=== PATIENT | female | born 1995 | race Caucasian/White ===

== ENCOUNTER 2022-09-01 20:53 | Emergency (ER) | payer OTHER, SELFPAY ==
--- NOTE | 2022-09-01 20:56 | PC.NURSE ---
pt came up to intake desk and ripped off wrist band. pt states im leaving and walked out.
[2022-09-01 21:00] VITALS: BP 137/78; PULSE 83; RESP 14; TEMP 36.3; O2SAT 100
--- NOTE | 2022-09-01 22:48 | ED.DENTAL ---
HPI - Dental/Oral General Chief complaint: Dental/Oral <BRANDEN Johnson Last Filed: 09/01/22 23:06> Stated complaint: dental <BRANDEN Johnson Last Filed: 09/01/22 23:06> Time Seen by Provider: 09/01/22 21:08 <BRANDEN Johnson Last Filed: 09/01/22 23:06> Source: patient <BRANDEN Johnson Last Filed: 09/01/22 23:06> Mode of arrival: ambulatory <BRANDEN Johnson Filed: 09/01/22 23:06> Limitations: no limitations <BRANDEN Johnson Last Filed: 09/01/22 23:06> History of Present Illness HPI Narrative: Patient is a 27-year-old female who presented to ED with report of right upper and lower dental pain. Patient reports she has known dental caries and dental fractures on the right side. She developed pain throughout her right upper teeth, extending to her right lower teeth earlier this morning. She has been taking Tylenol for the pain without much relief. She feels as though her teeth are infected. Denies any fever, difficulty breathing or swallowing, vomiting. Patient does not have an appointment yet with a dentist. Patient is a recovering methamphetamine user. She is currently 7 months clean living in a sober living house. <BRANDEN Johnson Last Filed: 09/01/22 23:06> Related Data Allergies/adverse reactions: Allergies Allergy/AdvReac Type Severity Reaction Status Date / Time NSAIDS (Non-Steroidal Allergy Hives Verified 09/01/22 20:54 Anti-Inflamma <BRANDEN Johnson Last Filed: 09/01/22 23:06> Review of Systems Review of Systems: CONSTITUTIONAL: Denies fever, chills, or sweats. ENT: See HPI. CARDIOVASCULAR: Denies chest pain. RESPIRATORY: Denies dyspnea. GASTROINTESTINAL: Denies abdominal pain, nausea, vomiting. GENITOURINARY: Denies dysuria or hematuria. <BRANDEN Johnson Last Filed: 09/01/22 23:06> All systems reviewed & are unremarkable except as noted in HPI and below <Charlene Becerril PA-C - Last Filed: 09/01/22 23:06> Exam Narrative: GENERAL: Well appearing, well-nourished, non-toxic, in no acute distress. HEAD: Normocephalic, atraumatic. ENT: Diffuse dental decay and scattered dental caries. Tenderness to palpation along right-sided upper and lower gum lines, particularly lower inner gumline, upper outer gumline. No trismus. No stridor. No focal abscess. NECK: Supple. No significant swelling or adenopathy, no masses. RESPIRATORY: Airway patent, respirations nonlabored. Clear to auscultation bilaterally, no rales, rhonchi, wheezing. CARDIOVASCULAR: Regular rate and rhythm without murmurs, rubs, or gallops. Radial pulses 2+ and equal bilaterally. MUSCULOSKELETAL: Moves all extremities. Strength/ROM intact without gross deformities. SKIN: Warm, dry, normal color. No rashes. NEURO: A&O X3. Speech clear. Cranial nerves II-XII grossly intact. Steady gait. No ataxic movements. PSYCHIATRIC: Appropriate mood and affect. Normal interaction. <Charlene Becerril PA-C - Last Filed: 09/01/22 23:06> Course KAYAK MAKER/PA Physician Supervision This is a was performed by both a physician and an APC. I performed all aspects of the MDM as documented w/ the following additions: 27-year-old former meth user presenting with dental pain. No abscess. Discharged w/ dental follow up. All questions answered. Patient in agreement w/ disposition. <Aditya Reynolds MD - Last Filed: 09/08/22 18:22> Vital Signs Vital signs: Vital Signs Temperature 97.3 F L 09/01/22 21:00 Pulse Rate 83 09/01/22 21:00 Respiratory Rate 14 09/01/22 21:00 Blood Pressure 137/78 09/01/22 21:00 Pulse Oximetry 100 09/01/22 21:00 Oxygen Delivery Room Air 09/01/22 21:00 Temperature 97.3 F L 09/01/22 21:00 Pulse Rate 83 09/01/22 21:00 Respiratory Rate 14 09/01/22 21:00 Blood Pressure 137/78 09/01/22 21:00 Pulse Oximetry 100 09/01/22 21:00
[2022-09-01] MEDS: AMOXICILLIN/CLAVULANATE K 875-125 MG TAB 1 TABLET PO (22:54)
== END 2022-09-01 22:57 | disposition home or self-care (01) ==
PROVIDERS: Emergency Provider Physician Assistant
DX: K02.9 Dental caries, unspecified (principal); K03.81 Cracked tooth
CPT/HCPCS: 99283; A9270

== ENCOUNTER 2023-05-20 14:35 | Emergency (ER) | payer OTHER, SELFPAY ==
[2023-05-20 14:43] VITALS: BP 110/58; PULSE 76; RESP 20; TEMP 36.8; O2SAT 100
--- NOTE | 2023-05-20 14:58 | ED.DENTAL ---
HPI - Dental/Oral General Chief complaint: Dental/Oral Stated complaint: Left jaw area swollen/pain Time Seen by Provider: 05/20/23 14:49 Source: patient and RN notes reviewed Mode of arrival: ambulatory Limitations: no limitations History of Present Illness HPI Narrative: Patient presents today complaining of left upper and lower dental pain since 2:00 a.m. this morning that has been worsening since onset, mild swelling in the jaw. Denies fever, shortness of breath or difficulty swallowing. Currently rates her pain 6/10 and has been using Tylenol, Orajel, and mouthwash without much relief. She does not currently have a dentist. Related Data Home Medications Medication Instructions Recorded Confirmed valacyclovir 1 gram tablet 1,000 mg PO DAILY 05/20/23 05/20/23 Allergies Allergy/AdvReac Type Severity Reaction Status Date / Time NSAIDS (Non-Steroidal Allergy Intermediate Hives Verified 05/20/23 14:51 Anti-Inflamma Review of Systems Review of Systems: CONSTITUTIONAL: Denies body aches, fever, chills, or sweats. EYES: Denies visual changes, redness, or discharge. ENT: Denies rhinorrhea, congestion, sore throat, or otalgia.+ dental pain and facial swelling CARDIOVASCULAR: Denies chest pain, palpitations, or edema. RESPIRATORY: Denies cough or dyspnea. GASTROINTESTINAL: Denies abdominal pain, nausea, vomiting, or diarrhea. GENITOURINARY: Denies dysuria or hematuria. SKIN: Denies rash, itching, or wounds. MUSCULOSKELETAL: Denies back pain, joint pain, or myalgia. NEUROLOGIC: Denies headache, numbness, tingling, or weakness. PSYCH: Denies depression or anxiety. PMFSH Comments At time of signature, I have reviewed and agree with nursing past medical, surgical, social and family history unless otherwise noted. Please see nursing chart for further information. There is no relevant family history pertinent to the presenting complaint Exam Narrative: GENERAL: Well-appearing, well-nourished, and in no acute distress. HEAD: Normocephalic, atraumatic. EYES: EOMI. No redness or drainage. Conjunctivae normal. ENT: Mucous membranes pink and moist. Throat normal. Uvula midline. Pain to tooth 18 and 12 with some widespread decay. Mild swelling of the left lower jaw. No trismus NECK: Normal AROM. CHEST: No respiratory distress. EXTREMITIES: Normal range of motion. No edema. SKIN: Warm, dry, no rash. Capillary refill normal. Normal skin turgor. NEURO: No focal deficits. Alert and oriented x3. Gait steady. PSYCH: Normal affect. No signs of depression or anxiety. Course Course Level of Care: Express Care Visit Vital Signs Vital signs: Vital Signs Temperature 98.2 F 05/20/23 14:43 Pulse Rate 76 05/20/23 14:43 Respiratory Rate 20 05/20/23 14:43 Blood Pressure 110/58 L 05/20/23 14:43 Pulse Oximetry 100 05/20/23 14:43 Oxygen Delivery Room Air 05/20/23 14:43 Temperature 98.2 F 05/20/23 14:43 Pulse Rate 76 05/20/23 14:43 Respiratory Rate 20 05/20/23 14:43 Blood Pressure 110/58 L 05/20/23 14:43 Pulse Oximetry 100 05/20/23 14:43 Oxygen Delivery Room Air 05/20/23 14:43 Reviewed MDM - Dental/Oral MDM Narrative Medical decision making narrative: Patient is started on a course of Augmentin and urged to follow-up with a dentist. Anticipatory guidance given. Differential Diagnosis Differential diagnosis: Likely gingival abscess, dental caries, toothache, dental abscess and fracture of tooth Critical Care Time Critical Care Time Critical Care Time: No Discharge Plan Discharge Clinical Impression: Abscess, dental Patient Disposition: Home, Self-Care Condition: Stable Instructions: Antibiotic Form, Dental Abscess (ED) Additional Instructions: Please take the Augmentin as prescribed until gone. Continue Tylenol for pain if needed. Follow-up with a dentist as soon as possible. As discussed, if symptoms worsen, please go to the ER immediately fo
== END 2023-05-20 15:04 | disposition home or self-care (01) ==
PROVIDERS: Emergency Provider Nurse Practitioner
DX: K04.7 Periapical abscess without sinus (principal)
CPT/HCPCS: 99213; G0463

== ENCOUNTER 2023-07-26 13:07 | Emergency (ER) | payer OTHER, SELFPAY ==
[2023-07-26 13:12] VITALS: BP 113/57; PULSE 86; RESP 18; TEMP 37.2; O2SAT 98
--- NOTE | 2023-07-26 13:46 | ED.URI ---
HPI - URI/Sore Throat General Chief Complaint: Upper Respiratory Infection Stated Complaint: Headache/cough/congestion Time Seen by Provider: 07/26/23 14:20 Source: patient, RN notes reviewed and old records reviewed Mode of arrival: ambulatory Limitations: no limitations History of Present Illness HPI Narrative: 28-year-old female presents to the [facility] with 3 day history of cough, congestion and headache. Has taken Tylenol. No other treatment prior to arrival. Related Data Home Medications Medication Instructions Recorded Confirmed valacyclovir 1 gram tablet 1,000 mg PO DAILY 05/20/23 07/26/23 norgestimate 0.25 mg-ethinyl 1 tablet PO DAILY 07/26/23 07/26/23 estradiol 35 mcg tablet (Vesta) Allergies Allergy/AdvReac Type Severity Reaction Status Date / Time NSAIDS (Non-Steroidal Allergy Intermediate Hives Verified 07/26/23 13:53 Anti-Inflamma Review of Systems Review of Systems: All systems reviewed & are unremarkable except as noted in HPI and below Constitutional: Constitutional: Reports as per HPI and Reports headache(s) Eyes: Eyes: Reports no additional eye complaints ENT: Reports nasal congestion Cardiovascular: Cardiovascular: Reports no additional cardiovascular complaints, Denies chest pain and Denies dyspnea Respiratory: Respiratory: Reports as per HPI, Denies chest congestion, Reports cough and Denies dyspnea Gastrointestinal: Gastrointestinal: Reports no additional gastrointestinal complaints, Denies abdominal pain, Denies nausea and Denies vomiting Musculoskeletal: Musculoskeletal: Reports no additional musculoskeletal complaints Integumentary/Breasts: Skin/Breast: Reports system reviewed and no additional complaints, except as docu Neurologic: Reports system reviewed and no additional complaints, except as documented Psychiatric: Psychiatric: Reports no additional psychiatric complaints Allergic/Immunologic: Allergic/Immunologic: Reports no additional allergic/immunologic complaints PMFSH Comments At the time of my signature, I reviewed and agree with the nursing past medical, surgical, social, and family history. There is no relevant family history pertinent to the patient complaint. Exam Const: General: cooperative, healthy appearing, comfortable, no acute distress, well developed, alert and well nourished Nutritional Appearance: well nourished Orientation/consciousness: patient oriented x3 Limitations: no limitations HENMT: Head: normal to inspection Ears: hearing grossly normal bilaterally, external ears normal, TM's normal bilaterally, EAC's normal, mastoids normal and no periauricular adenopathy Face/Nose/Sinus: Normal external nose present, Normal nares present, Normal nasal mucous membranes and turbinates present, normal facial exam and face symmetric Face and sinus: normal facial exam, sinuses nontender and face symmetric Throat: posterior oropharynx normal, uvula midline, postnasal drainage and no uvular edema Eyes: General: appearance normal, both eyes and all related structures Alignment and Position: alignment normal Periorbital: periorbital findings normal Pupils: Equal, round and reactive pupils present EOM: EOMs intact bilaterally Neck: Neck: normal visual inspection, full ROM, no lymphadenopathy and no meningeal signs Chest: Chest palpation & inspection: normal inspection of the chest Resp: Effort & Inspection: normal respiratory effort and able to speak in complete sentences Auscultation: clear to auscultation bilaterally, no crackles, no rales, no rhonchi and no wheezes Cardio: Rate: regular rate Rhythm: regular rhythm Skin: General skin exam: normal color and no rashes or lesions noted Lesions: no lesions Rashes: no rashes Trauma: no lacerations or abrasions Wounds: no wounds Neuro: General: patient oriented x3, gait normal, tone normal, moves all extremities and no meningeal signs Cranial nerves: Yes Equal, round and reactive pupils present Cogni
== END 2023-07-26 14:30 | disposition home or self-care (01) ==
PROVIDERS: Emergency Provider Nurse Practitioner
DX: J06.9 Acute upper respiratory infection, unspecified (principal); R09.82 Postnasal drip; Z20.822 Contact with and (suspected) exposure to COVID-19
CPT/HCPCS: 87081; 87426; 87804; 87880; 99213; G0463

== ENCOUNTER 2024-12-04 08:35 | Emergency (ER) | payer OTHER, SELFPAY ==
[2024-12-04 08:40] VITALS: BP 119/69; PULSE 72; RESP 20; TEMP 36.3; O2SAT 99
--- OUTSIDE RECORDS SUMMARY | 2024-12-04 08:46 | XMS_ITS | Clinical Summary ---
Author Organization [facility] Address [address] [place] [address] Care Team Providers Care Warehouse Distribution Manager Name Role Phone No, Physician Primary Care Provider [phone] Allergies Active Allergy Reactions Criticality Noted Date Comments Aspirin Hives Medium 04/09/2019 Ibuprofen Swelling Medium 05/09/2018 Hives Naproxen Swelling Medium 05/09/2018 Hives Medications diphenoxylate-atrop ine (LOMOTIL) 2.5-0.025 mg per tabletIndications:d iarrhea Take 1 tablet by mouth 4 (four) times a day as needed for diarrhea 10 tablet 9 Active lidocaine viscous (XYLOCAINE) 2 % solution Take 10 mL by mouth every 3 (three) hours 100 mL 2 Active ondansetron ODT (ZOFRAN-ODT) 4 mg disintegrating tablet Dissolve 1 tablet oral every 4 hours as needed for nausea or vomiting. 15 tablet 2 Active Active Problems No known active problems Medical History Medical History Date Comments No known health problems Anxiety Social History Tobacco Use Types Packs/Day Years Used Date Smoking Tobacco: Never Smokeless Tobacco: Never Tobacco Cessation:Counseling Given: Not Answered Alcohol Use Standard Drinks/Week Comments No 0 (1 standard drink = 0.6 oz pur e alcohol) Personal Safety Answer Date Recorded Getting School Help Needed Not on file 04/16 Comments No Sex and Gender Information Value Date Recorded Sex Assigned at Not on file Legal Sex Female 7:38 PM HUMAN RESOURCES SERVICES SPECIALIST Gender Identity Not on file Sexual Orientation Not on file Obstetrics History Last Filed Vital Signs Vital Sign Reading Time Taken Comments Blood Pressure 114/71 02/10/2022 6:21 AM HUMAN RESOURCES SERVICES SPECIALIST Pulse 75 02/10/2022 6:21 AM HUMAN RESOURCES SERVICES SPECIALIST Temperature 36.4 C (97.6 F) 02/10/2022 6:21 AM HUMAN RESOURCES SERVICES SPECIALIST Respiratory Rate 18 02/10/2022 6:21 AM HUMAN RESOURCES SERVICES SPECIALIST Oxygen Saturation 100% 02/10/2022 6:21 AM HUMAN RESOURCES SERVICES SPECIALIST Inhaled Oxygen Concentration - - Weight 70 kg (154 lb 5.2 oz) 02/10/2022 1:44 AM HUMAN RESOURCES SERVICES SPECIALIST Height 167.6 cm (5' 6) 08/07/2021 12:41 PM CDT Body Mass Index 24.91 08/07/2021 12:41 PM CDT Plan of Treatment Health Maintenance Due Date Last Done Comments Cervical Cancer Screening 1995 Depression Screening 1995 Hepatitis C Screening 1995 DTaP/Tdap/Td Vaccine (1 - Tdap) 06/29/2006 Varicella Vaccines (1 of 2 - 13+ 2-dose series) 06/29/2008 Hepatitis B Screening 06/29/2013 Regular Well Visit/Exam 18-64 06/29/2013 HPV Vaccines (1 - 3-dose SCD M series) 06/29/2022 Influenza Vaccine (#1) 2024 Pneumococcal vaccine <65 Aged Out No longer eligible based on patient's age to complete this topic Insurance [place], [place] [id number] [place] [address] [address] [place] [place] [id number] [place] [address] Care Teams Warehouse Distribution Manager Relationship Specialty Start Date End Date No, Physician PCP - General 09/22/16
--- OUTSIDE RECORDS SUMMARY | 2024-12-04 08:46 | XMS_ITS | Clinical Summary ---
Author Organization [facility] Address [address] [place] [address] Phone Care Team Providers Care Truck Manager Name Role Phone Provider, None Primary Care Provider Unavailabl e Allergies Active Allergy Reactions Criticality Noted Date Comments Nsaids Hives 09/09/2021 Medications valACYclovir (VALTREX) 1 GM Tablet Take 1 Tablet by mouth 2 times daily. 20 Tablet 11/04/2022 Active famotidine (PEPCID) 40 MG Tablet Take 1 Tablet by mouth every evening. 90 Tablet 12/21/2022 Active traMADol (ULTRAM) 50 MG TabletIndicatio ns:Infected dental caries Take 1 Tablet by mouth every 6 hours as needed for Moderate or more severe pain. 12 Tablet 01/18/2023 Active acetaminophen-c odeine (TYLENOL #3) 300-30 MG TabletIndicatio ns:Dentalgia,De ntal caries Take 1 Tablet by mouth every 4 hours as needed for Moderate or more severe pain. 10 Tablet 12/24/2023 Active cyclobenzaprine (FLEXERIL) 5 MG Tablet Take 1 Tablet by mouth 3 times daily as needed for Muscle spasms. 15 Tablet 03/05/2024 Active Social History Tobacco Use Types Packs/Day Years Used Date Smoking Tobacco: Never Smokeless Tobacco: Never Tobacco Cessation:Counseling Given: Not Answered Alcohol Use Standard Drinks/Week Comments Yes 0 (1 standard drink = 0.6 oz pur e alcohol) Comments No Sex and Gender Information Value Date Recorded Sex Assigned at Female 01/18/2023 6:09 PM BILLET ASSEMBLER Legal Sex Female 7:36 AM BILLET ASSEMBLER Gender Identity Female 01/18/2023 6:09 PM BILLET ASSEMBLER Sexual Orientation Not on file Last Filed Vital Signs Vital Sign Reading Time Taken Comments Blood Pressure 120/76 03/25/2024 7:52 AM BILLET ASSEMBLER Pulse 72 03/25/2024 7:52 AM BILLET ASSEMBLER Temperature 36.3 C (97.3 F) 03/25/2024 7:52 AM BILLET ASSEMBLER Respiratory Rate 16 03/25/2024 7:52 AM BILLET ASSEMBLER Oxygen Saturation 100% 03/25/2024 7:52 AM BILLET ASSEMBLER Inhaled Oxygen Concentration - - Weight 96.7 kg (213 lb 3 oz) 03/25/2024 7:52 AM BILLET ASSEMBLER Height 167.6 cm (5' 6) 03/25/2024 7:52 AM BILLET ASSEMBLER Body Mass Index 34.41 03/25/2024 7:52 AM BILLET ASSEMBLER Plan of Treatment Health Maintenance Due Date Last Done Comments TdaP Immunization 1995 Hepatitis B Immunization (1 of 3 - 19+ 3-dose series) 06/29/2014 Pap Smear 06/29/2016 Human Papillomavirus (HPV) Immunization (1 - 3-dose SCDM series) 06/29/2022 Influenza Immunization (#1) 2024 SARS-COV-2 Immunization ( season) 2024 Respiratory Syncytial Virus (RSV) Immunization (Adult) (1 - 1-dose 75+ series) 06/29/2070 Hepatitis C Virus (HCV) Screening Completed 023 Meningococcal Immunization (ACWY) Aged Out No longer eligible based on patient's age to complete this topic Pneumococcal Immunization Combined Aged Out No longer eligible based on patient's age to complete this topic Rotavirus Immunization Aged Out No lo nger eligible based on patient's age to complete this topic Procedures Procedure Name Priority Date/Time Associated Diagnosis Comments HEPATITIS C ANTIBODY STAT 11/04/2022 9:20 PM CDT from Last 3 Months or Most Recently Relevant to Health Maintenance Results * Hepatitis C Antibody (11/04/2022 9:20 PM CDT) hepatitis C antibody 0.12 <1 S/[facility] [place] [facility] [id number] 11/05/2022 3:05 PM CDT [facility] Comment: Signal/Cutoff ratio < 0.79 is Nondetected Signal/Cutoff ratio 0.80-0.99 is Grayzone Signal/Cutoff ratio > 0.99 is Detected Supplemental assays are recommended if signal/cutoff ratio is >/=1.00. Signal/cutoff ratio result >/= 5.00 is 97% predictive of positivity for recombinant immunoblot assay (RIBA) and will be reported to the [place] [facility] as required. Blood Venipuncture / Unknown 11/04/2022 9:20 PM CDT 11/04/2022 9:46 PM CDT us Crystal Nash Page PAC CHEMISTRY ORDERABLES Final R esult [facility] [address] [place] [address], [place] from Last 3 Months or Most Recently Relevant to Health Maintenance Insurance MEDICAID [place] Care Teams Truck Manager Relationship Specialty Start Date End Date Provider, None [place] PCP - General 06/12/23
--- NOTE | 2024-12-04 08:48 | ED_ITS ---
HPI - URI/Sore Throat General Chief Complaint: Upper Respiratory Infection Stated Complaint: sore throat Time Seen by Provider: 12/04/24 08:44 Source: patient, RN notes reviewed and old records reviewed Mode of arrival: ambulatory Limitations: no limitations History of Present Illness HPI Narrative: 29 year old female who presents to [facility] care with complaints of sore throat which started yesterday morning. Patient reports that throat is sore especially to swallow, states feels like razor blades in her throat. Patient reports no cough, no ear pain,states no sinus pressure or headache pain. Patient reports t hat she has not had any know fevers. Patient reports that she has been taking Tylenol for her discomfort. MD elicited complaint: sore throat Onset (ago): day(s) (since yesterday morning) Consistency: constant Pain scale (0-10): 6 Able to tolerate fluids by mouth: Yes Exacerbating factors: swallowing Treatments prior to arrival: acetaminophen Related Data Home Medications ?Medication ?Instructions ?Recorded ?Confirmed ?Last Taken ?Type valacyclovir 1 gram tablet 1,000 mg PO DAILY 05/20/23 07/26/23 Unknown History Allergies Allergy/AdvReac Type Severity Reaction Status Date / Time NSAIDS (Non-Steroidal Allergy Intermediate Hives Verified 12/04/24 08:44 Anti-Inflamma Review of Systems Review of Systems: CONSTITUTIONAL: Reports malaise,no chills, sweats, or fever. EYES: Denies visual changes, redness, or discharge. ENT: Reports no rhinorrhea, congestion,no sinus pain,no otalgia and positive for sore throat. CARDIOVASCULAR: Denies chest pain, palpitations, or edema. RESPIRATORY: Reports no cough.? Denies dyspnea. GASTROINTESTINAL: Denies abdominal pain, nausea, vomiting, diarrhea SKIN: Denies rash or itching. MUSCULOSKELETAL: Denies myalgia. NEUROLOGIC: Denies headache. 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 There is no relevant family history pertinent to the presenting complaint Exam Narrative: GENERAL: Well-appearing, well-nourished, and in no acute distress. HEAD: Normocephalic EYES: PERRLA, conjunctivae clear ENT: Nares clear, turbinates edematous and erythematous, clear discharge. Mucous membranes moist. TM pearly archibald with dull light reflex bilaterally; no tragal tenderness. Oropharynx erythematous without lesions. Tonsils red enlarged and without exudate, no drooling, no hoarseness, no trismus, uvula midline minimalpost nasal drainage NECK: Supple. lymphadenopathy CHEST: Clear to auscultation, breath sounds equal. No wheezing, rhonchi, rales, or stridor. No respiratory distress, speaks in full sentences.SAO2 99% on room air HEART: Regular rate and rhythm. No murmur heard. SKIN: Warm, dry, no rash. NEURO: Alert and oriented x3. PSYCH: Normal mood and affect Course Course Emergency Course: Patient is aware of diagnosis, understands and agrees to treatment plan.? Anticipatory guidance given.? Patient agrees to follow-up as directed and is aware of reasons to seek care at the emergency department. Portions of this record may have been created with voice recognition software Level of Care: Express Care Visit Vital Signs Vital signs: Vital Signs Temperature 36.3 C L 12/04/24 08:40 Pulse Rate 72 12/04/24 08:40 Respiratory Rate 20 12/04/24 08:40 Blood Pressure 119/69 12/04/24 08:40 Pulse Oximetry 99 12/04/24 08:40 Oxygen Delivery Room Air 12/04/24 08:40 Temperature 36.3 C L 12/04/24 08:40 Pulse Rate 72 12/04/24 08:40 Respiratory Rate 20 12/04/24 08:40 Blood Pressure 119/69 12/04/24 08:40 Pulse Oximetry 99 12/04/24 08:40 Oxygen Delivery Room Air 12/04/24 08:40 Reviewed MDM - URI/Sore Throat MDM Narrative Medical decision making narrative: Differential diagnosis considered: Braga virus, strep pharyngitis, allergic rhinitis, upper respiratory tract infection, sinusitis, rhinosinusitis, nasopharyngitis. viral pharyngitis, otitis media, otitis externa, pneumonia, bronchitis, viral cough syndrome, viral syndrome, and influenza.? Exam findings show no acute concerns or changes; patient is non-toxic appearing and is in no distress.? Patient is appropriate for outpatient treatment and follow-up. Differential Diagnosis Differential diagnosis: Likely upper respiratory infection, viral infection, pharyngitis and other (strep pharyngitis, tonsillitis) Medical Records Attestation: I reviewed the patient's medical records. Lab Data Attestation: I reviewed the patient's lab results. Lab results narrative: strep screen negative, culture sent, mono test negative Labs: Lab Results 12/04/24 12/04/24 Range/Units 08:44 08:50 POC Monoscreen Negative (Negative) POC Grp A Strep Screen Negative (Negative) reviewed Critical Care Time Critical Care Time Critical Care Time: No Discharge Plan Discharge Clinical Impression: Acute tonsillitis Qualifiers: Pharyngitis/tonsillitis etiology: unspecified etiology Qualified Code(s): J03.90 - Acute tonsillitis, unspecified Patient Disposition: Home Condition: Stable Instructions: Antibiotic Form, Tonsillitis (ED) Additional Instructions: . Take the entire course of antibiotics. Throw away your current toothbrush and begin using a new toothbrush in 48 hours in order to prevent re-infection. Sanitize all reusable water bottles . Do not share items with others. Salt water gargles may alleviate some of the throat discomfort. You can take Tylenol per the package instructions for pain/fever. Your strep test today was negative. A throat culture will be sent to the laboratory for further testing. Zyrtec Claritin or Phuong daily Patient Language: [place] Prescriptions: New amoxicillin 500 mg capsule 500 mg PO Q8H Qty: 21 0RF loratadine [Claritin] 10 mg tablet 10 mg PO DAILY Qty: 20 0RF No Action valacyclovir 1 gram tablet 1,000 mg PO DAILY Follow-up/Referrals: PHYSICIAN,PROOF COIN COLLECTOR [Primary Care Provider, Internal Medicine] Time of Disposition: 09:11 Quality Maddi Coma Scale Eyes: Open Verbal: Oriented and Alert Motor: Follows Commands Maddi Coma Total Score: 15
[2024-12-04 09:06] LABS: EDSTREPNEGPOS1 Negative (Negative)
[2024-12-04 09:14] LABS: EDMONONEGPOS Negative (Negative)
== END 2024-12-04 09:17 | disposition home or self-care (01) ==
PROVIDERS: Emergency Provider Registered Nurse
DX: J03.90 Acute tonsillitis, unspecified (principal); Z87.891 Personal history of nicotine dependence
CPT/HCPCS: 36416; 86308; 87081; 87880; 99213; G0463